=== PATIENT | male | born 1960 | race Caucasian/White ===

== ENCOUNTER → 2024-04-11 | Outpatient (CLI) | payer MEDICARE ==
--- NOTE | 2024-04-11 16:12 | XR ---
EXAMINATION TYPE: XR chest 2V DATE OF EXAM: 04/11/2024 COMPARISON: None HISTORY: 63-year-old male R05.9, persistent cough for one week TECHNIQUE: Frontal and lateral views FINDINGS: Heart normal size. Mild elongation of the thoracic aorta. Mild interstitial prominence. Nodularity ri ght mid lung and also smaller area of nodularity right lower lung are noted. [facility] mid and lower thora cic spine. No consolidation or pleural effusion. IMPRESSION: Nodularity at the right mid and right lower lung. At least one of these most likely represents a calc ified granuloma. The second can be further evaluated with a nonemergent CT of the chest. Otherwise, n o definite acute process.
== END | disposition home or self-care (01) ==
LOC: RADXRMAIN 15:15
PROVIDERS: ATTEND Family Medicine
DX: R05.3 Chronic cough (principal); R91.8 Other nonspecific abnormal finding of lung field
CPT/HCPCS: 71046

== ENCOUNTER → 2024-04-17 | Outpatient (CLI) | payer MEDICARE ==
[2024-04-17 14:39] LABS: African American GFR (CKD) 64 (>60 ml/min/1.73 sqM); Blood Urea Nitrogen 27 mg/dL (9-20); Non-African American GFR(CKD) 56 (>60 ml/min/1.73 sqM)
--- NOTE | 2024-04-19 05:37 | CT ---
EXAMINATION TYPE: CT chest w con DATE OF EXAM: 04/17/2024 COMPARISON: Chest x-ray 6 days earlier. HISTORY: Chronic cough x 9 weeks, solitary pulmonary nodule. Abnormal chest x-ray. CT DLP: 797 mGycm. Automated Exposure Control for Dose Reduction was Utilized. TECHNIQUE: CT scan of the thorax is performed following with IV Contrast, patient injected with 80 m L of Isovue 300. FINDINGS: LUNGS: There is 10 mm posterior right lower lobe calcified nodule or benign granuloma axial image 31. There is mild parenchymal scarring in the right lung base with cystic change. No greater than 5 mm n oncalcified pulmonary nodules or masses. No pleural effusion or pneumothorax seen bilaterally. MEDIASTINUM: There are no greater than 1 cm noncalcified hilar or mediastinal lymph nodes. Prominent but calcified right hilar and subcarinal lymph nodes. Subcentimeter nodules in nonenlarged thyroid g land. No cardiomegaly or pericardial effusion is seen. Coronary artery calcifications are identified which is noted marker for underlying coronary artery disease . OTHER: Liver is diffusely low dense consistent with fatty infiltrative hepatocellular disease. Bridgi ng osteophytes in the spine are seen. IMPRESSION: There is evidence of old granulomatous disease. No worrisome noncalcified nodules or mass es to suggest neoplasm noted. No suspicious acute pulmonary process seen.
== END | disposition home or self-care (01) ==
LOC: RADCTMAIN 13:44
PROVIDERS: ATTEND Family Medicine
DX: R91.1 Solitary pulmonary nodule (principal)
CPT/HCPCS: 82565; 84520; 71260; 36415; Q9967

== ENCOUNTER → 2025-04-05 | Outpatient (CLI) | payer MEDICARE ==
--- NOTE | 2025-04-12 16:36 | HM ---
HOLTER MONITOR REPORT TYPE OF REPORT: 3-day Holter. Predominant rhythm appears to be sinus with heart rate ranging from 51 to 150 beats per minute with average heart rate of 79 beats per minute. Less than 1% isolated PACs and PVCs. No evidence of any significant bradyarrhythmia noted. 3-beat run of PAT noted. Unassociated with any symptoms. This is an unremarkable 3-day Holter with evidence of sinus mechanism and short runs of PATs without symptoms. No significant leon arrhythmia and no significant symptoms. MMODL / IJN: [id number] /
== END | disposition home or self-care (01) ==
LOC: RADECHMAIN 12:46
PROVIDERS: ATTEND Family Medicine
DX: I49.3 Ventricular premature depolarization (principal); R00.2 Palpitations
CPT/HCPCS: 93225